=== PATIENT | male | born 1950 | race African-American/Black ===

== ENCOUNTER 2021-06-20 08:21 | Emergency (ER) | payer MEDICARE, MEDICAID ==
[~2021-06-20] VITALS: Ht 182.9 cm; Wt 89.0 kg
[2021-06-20 09:38] VITALS: BP 121/74
[2021-06-20] MEDS ORDERED: CEPH500T MT (09:42)
[2021-06-20] MEDS ORDERED: P50 MT (09:42)
[2021-06-20] MEDS ORDERED: CEPHALEXIN 250MG CAPSULE PO ONE (09:45)
[2021-06-20] MEDS ORDERED: PREDNISONE 20MG TABLET PO ONE (09:45)
== END 2021-06-20 10:10 | disposition home or self-care (01) ==
LOC: ER 08:37
DX: L25.9 Unspecified contact dermatitis, unspecified cause (principal); E11.9 Type 2 diabetes mellitus without complications; I10 Essential (primary) hypertension; Z98.890 Other specified postprocedural states
CPT/HCPCS: 99283; J7512

== ENCOUNTER 2025-06-21 11:41 | Inpatient (IN) | payer MEDICARE, MEDICAID ==
[~2025-06-21] VITALS: Ht 180.3 cm; Wt 83.1 kg
[2025-06-21 08:30] VITALS: BP 124/88; PULSE 98; RESP 18; TEMP 36; O2SAT 98
[~2025-06-21 11:41] MED LIST: AMLO5TAB88 PO; ASPI-1497 PO; CIPR-263 MT; DOCU-138 MT; FINA-37 MT; TAMS-54 MT
[2025-06-21 11:43] VITALS: O2SAT 97
[2025-06-21] MEDS: SODIUM CHLORIDE 0.9% (SEPSIS BOLUS) IV ONE (12:46)
[2025-06-21] MEDS: PIPERACILLIN/TAZO 3.375G/50ML 50 ML IV ONE (12:46)
[2025-06-21 13:02] LABS: HEMATOCRIT. 36.9 % (42.0-52.0); HEMOGLOBIN. 11.5 g/dL (14.0-18.0); MEAN PLATELET VOLUME 8.5 fl (7.4-10.4); PLATELET 372 x1000/uL (130-400); RED BLOOD CELL COUNT 4.33 mill/uL (4.7-6.1); RED CELL DISTRIBUTION WIDTH 16.2 % (11.6-14.6)
[2025-06-21 13:08] LABS: INR 1.2
[2025-06-21 13:14] LABS: UREA NITROGEN BLOOD 33 mg/dL (9-23)
[2025-06-21] MEDS: VANCOMYCIN 1G PREMIX 200 ML IV ONE (13:15)
[2025-06-21 13:16] LABS: ASPARTATE AMINOTRANSFERASE 21 IU/L (<34); BILIRUBIN DIRECT 0.2 mg/dL (<=3.0); BILIRUBIN TOTAL 0.4 mg/dL (0.1-1.0); PROTEIN TOTAL 7.7 g/dL (6.0-8.3)
[2025-06-21 13:23] LABS: CREATININE 1.5 mg/dL (0.6-1.3)
[2025-06-21 13:42] LABS: BAND% 1.0 % (1.0-6.0); EOSINOPHILS % MANUAL 1.0 % (0.0-5.0); LYMPHOCYTES % MANUAL 10.0 % (20.0-50.0); MONOCYTES % MANUAL 5.0 % (2.0-8.0); NEUTROPHILS % MANUAL 83.0 % (45.0-75.0)
[2025-06-21 13:43] LABS: PLATELET ESTIMATE NORMAL
[2025-06-21 15:33] LABS: CLARITY URINE TURBID (CLEAR); COLOR URINE ORANGE (YELLOW); GLUCOSE URINE NEGATIVE (NEGATIVE); KETONES URINE TRACE (NEGATIVE); LEUKOCYTE ESTERASE URINE 3+ (NEGATIVE); NITRITE URINE NEGATIVE (NEGATIVE); OCCULT BLOOD URINE 3+ (NEGATIVE); PH URINE 5.5 (4.5-8.0); PROTEIN URINE 3+ (NEGATIVE); SPECIFIC GRAVITY URINE 1.021 (1.005-1.030); UROBILINOGEN URINE 0.2 E.U./dL (0.2-1.0)
[2025-06-21 16:09] LABS: WBC URINE TNTC /hpf (0-2)
[2025-06-21 16:10] LABS: BACTERIA URINE 3+; SQUAMOUS EPITHELIAL CELL URINE 1+ /lpf (RARE/1+)
[2025-06-21 18:30] VITALS: BP 124/88; PULSE 98; RESP 18; TEMP 36; O2SAT 98
[2025-06-21] MEDS ORDERED: MV-M1TAB19 PO (19:15)
[2025-06-21] MEDS ORDERED: CHOL100046 PO (19:15)
[2025-06-21] MEDS ORDERED: METO25TA6 PO (19:15)
[2025-06-21] MEDS ORDERED: SPIR25TA6 PO (19:15)
[2025-06-21] MEDS ORDERED: MIRA50TA PO (19:15)
[2025-06-21] MEDS ORDERED: ATOR20TA65 PO (19:15)
[2025-06-21] MEDS ORDERED: SACU1TAB PO (19:15)
[2025-06-21 20:00] VITALS: BP 125/70; PULSE 75; RESP 18; TEMP 36.5; O2SAT 99
[2025-06-21] MEDS: PIPERACILLIN/TAZO 3.375G/50ML 50 ML IV SCH (22:38)
[2025-06-21] MEDS: SODIUM CHLORIDE 0.9% 1,000 ML IV SCH (22:38)
[2025-06-21] MEDS: VANCOMYCIN 750MG/150ML (BAXTER) IV SCH (23:45)
[2025-06-22] VITALS: BP 98/50; PULSE 68; RESP 17; TEMP 36.4; O2SAT 99
[2025-06-22 01:09] LABS: HEMATOCRIT. 34.3 % (42.0-52.0); HEMOGLOBIN. 10.5 g/dL (14.0-18.0); MEAN PLATELET VOLUME 8.6 fl (7.4-10.4); PLATELET 327 x1000/uL (130-400); RED BLOOD CELL COUNT 4.09 mill/uL (4.7-6.1); RED CELL DISTRIBUTION WIDTH 15.8 % (11.6-14.6)
[2025-06-22 01:35] LABS: LYMPHOCYTES % MANUAL 15.0 % (20.0-50.0); MONOCYTES % MANUAL 4.0 % (2.0-8.0); NEUTROPHILS % MANUAL 81.0 % (45.0-75.0); PLATELET ESTIMATE NORMAL
[2025-06-22 01:41] LABS: CREATININE 1.2 mg/dL (0.6-1.3)
[2025-06-22 01:42] LABS: UREA NITROGEN BLOOD 31 mg/dL (9-23)
[2025-06-22 01:43] LABS: ASPARTATE AMINOTRANSFERASE 16 IU/L (<34)
[2025-06-22 01:44] LABS: BILIRUBIN DIRECT 0.1 mg/dL (<=3.0); BILIRUBIN TOTAL 0.3 mg/dL (0.1-1.0); PROTEIN TOTAL 6.4 g/dL (6.0-8.3)
[2025-06-22 04:00] VITALS: BP 113/69; PULSE 93; RESP 18; TEMP 36.5; O2SAT 100
[2025-06-22 08:08] VITALS: BP 146/78; PULSE 98; RESP 20; TEMP 36.7; O2SAT 100
[2025-06-22 08:36] LABS: CREATININE 0.9 mg/dL (0.6-1.3); UREA NITROGEN BLOOD 23 mg/dL (9-23)
[2025-06-22 09:06] LABS: HEMATOCRIT. 36.1 % (42.0-52.0); HEMOGLOBIN. 11.1 g/dL (14.0-18.0); MEAN PLATELET VOLUME 8.9 fl (7.4-10.4); PLATELET 325 x1000/uL (130-400); RED BLOOD CELL COUNT 4.29 mill/uL (4.7-6.1); RED CELL DISTRIBUTION WIDTH 16.0 % (11.6-14.6)
[2025-06-22] MEDS ORDERED: NALOXONE HCL 0.4MG/ML VIAL IV PRN (10:00)
[2025-06-22] MEDS: HYDROCODONE/ACETAMINOPHEN 10/325MG TABLET PO PRN (10:08)
[2025-06-22 12:00] VITALS: BP 122/66; PULSE 87; RESP 20; TEMP 36.7; O2SAT 100
[2025-06-22] MEDS: VANCOMYCIN 750MG/150ML (BAXTER) IV SCH (12:32)
[2025-06-22] MEDS ORDERED: VANCOMYCIN 1.25GM/250ML IV SCH (14:00)
[2025-06-22 16:00] VITALS: BP 119/69; PULSE 95; RESP 18; TEMP 36.5; O2SAT 98
[2025-06-22 17:23] LABS: BAND% 1.0 % (1.0-6.0); EOSINOPHILS % MANUAL 3.0 % (0.0-5.0); LYMPHOCYTES % MANUAL 6.0 % (20.0-50.0); MONOCYTES % MANUAL 7.0 % (2.0-8.0); NEUTROPHILS % MANUAL 83.0 % (45.0-75.0); PLATELET ESTIMATE NORMAL
[2025-06-22] MEDS: METOPROLOL TARTRATE 25MG TABLET PO SCH (17:49)
[2025-06-22] MEDS: ASPIRIN 81MG EC TABLET PO SCH (17:49)
[2025-06-22] MEDS: FINASTERIDE 5MG TABLET PO SCH (17:50)
[2025-06-22] MEDS: TAMSULOSIN HCL 0.4MG SR CAPSULE PO SCH (17:50)
[2025-06-22] MEDS: AMLODIPINE 5MG TABLET PO SCH (17:50)
[2025-06-22 20:00] VITALS: BP 100/66; PULSE 72; RESP 18; TEMP 36.8; O2SAT 97
[2025-06-22] MEDS: ATORVASTATIN CALCIUM 20MG TABLET PO SCH (21:01)
[2025-06-23] VITALS (7 sets, daily range): BP systolic 102–150; BP diastolic 60–76; PULSE 76–100; RESP 18–20; TEMP 36.2–36.9; O2SAT 94–98
[2025-06-23] MEDS: ENOXAPARIN 40MG/0.4ML SYR SUBCUT SCH (08:29)
[2025-06-23 12:39] LABS: HEMATOCRIT. 35.9 % (42.0-52.0); HEMOGLOBIN. 11.4 g/dL (14.0-18.0); MEAN PLATELET VOLUME 8.9 fl (7.4-10.4); PLATELET 303 x1000/uL (130-400); RED BLOOD CELL COUNT 4.29 mill/uL (4.7-6.1); RED CELL DISTRIBUTION WIDTH 16.0 % (11.6-14.6)
[2025-06-23 12:52] LABS: CREATININE 0.9 mg/dL (0.6-1.3); UREA NITROGEN BLOOD 12 mg/dL (9-23)
[2025-06-23 17:54] LABS: EOSINOPHILS % MANUAL 3.0 % (0.0-5.0); LYMPHOCYTES % MANUAL 11.0 % (20.0-50.0); MONOCYTES % MANUAL 7.0 % (2.0-8.0); NEUTROPHILS % MANUAL 79.0 % (45.0-75.0); PLATELET ESTIMATE NORMAL
[2025-06-24] VITALS: BP 149/80; PULSE 88; RESP 20; TEMP 36.8; O2SAT 97
[2025-06-24 04:00] VITALS: BP 147/68; PULSE 97; RESP 20; TEMP 36.8; O2SAT 98
[2025-06-24 08:00] VITALS: BP 178/84; PULSE 82; RESP 18; TEMP 36.4; O2SAT 95
[2025-06-24 09:01] LABS: CREATININE 0.9 mg/dL (0.6-1.3)
[2025-06-24 09:02] LABS: UREA NITROGEN BLOOD 11 mg/dL (9-23)
[2025-06-24 09:04] LABS: HEMATOCRIT. 35.1 % (42.0-52.0); HEMOGLOBIN. 10.8 g/dL (14.0-18.0); MEAN PLATELET VOLUME 8.9 fl (7.4-10.4); PLATELET 297 x1000/uL (130-400); RED BLOOD CELL COUNT 4.14 mill/uL (4.7-6.1); RED CELL DISTRIBUTION WIDTH 16.1 % (11.6-14.6)
[2025-06-24 12:45] VITALS: BP 135/70; PULSE 96; RESP 18; TEMP 37.2; O2SAT 95
[2025-06-24 16:00] VITALS: BP 105/51; PULSE 87; RESP 17; TEMP 36.7; O2SAT 95
[2025-06-24] MEDS: VANCOMYCIN 1.25GM/250ML 250 ML IV SCH (16:21)
[2025-06-24 20:00] VITALS: BP 126/56; PULSE 95; RESP 20; TEMP 36.8; O2SAT 97
[2025-06-25] VITALS: PULSE 80; RESP 20; TEMP 37; O2SAT 98
[2025-06-25 04:00] VITALS: BP 140/80; PULSE 90; RESP 18; TEMP 36.8; O2SAT 97
[2025-06-25 05:40] LABS: EOSINOPHILS % MANUAL 3.0 % (0.0-5.0); LYMPHOCYTES % MANUAL 13.0 % (20.0-50.0); MONOCYTES % MANUAL 12.0 % (2.0-8.0); NEUTROPHILS % MANUAL 72.0 % (45.0-75.0); PLATELET ESTIMATE NORMAL
[2025-06-25 08:00] VITALS: BP 144/69; PULSE 95; RESP 18; TEMP 36.6; O2SAT 96
[2025-06-25 12:00] VITALS: BP 154/76; PULSE 86; RESP 18; TEMP 36.6; O2SAT 99
[2025-06-25 16:00] VITALS: BP 134/66; PULSE 94; RESP 17; TEMP 36.6; O2SAT 97
[2025-06-25 20:00] VITALS: BP 179/93; PULSE 109; RESP 20; TEMP 36.7; O2SAT 93
[2025-06-26] VITALS: BP 127/82; PULSE 75; RESP 20; TEMP 36.8; O2SAT 92
[2025-06-26 04:00] VITALS: BP 146/92; PULSE 108; RESP 20; TEMP 36.6; O2SAT 95
[2025-06-26 06:53] LABS: CREATININE 0.8 mg/dL (0.6-1.3); UREA NITROGEN BLOOD 8 mg/dL (9-23)
[2025-06-26 06:54] LABS: HEMATOCRIT. 31.4 % (42.0-52.0); HEMOGLOBIN. 9.9 g/dL (14.0-18.0); MEAN PLATELET VOLUME 8.6 fl (7.4-10.4); PLATELET 316 x1000/uL (130-400); RED BLOOD CELL COUNT 3.80 mill/uL (4.7-6.1); RED CELL DISTRIBUTION WIDTH 15.7 % (11.6-14.6)
[2025-06-26 06:55] LABS: VITAMIN B12 SERUM 641 pg/mL (211-911)
[2025-06-26 08:30] VITALS: BP 144/71; PULSE 100; RESP 18; TEMP 36.6; O2SAT 97
[2025-06-26 10:30] LABS: BAND% 1.0 % (1.0-6.0); LYMPHOCYTES % MANUAL 4.0 % (20.0-50.0); MONOCYTES % MANUAL 10.0 % (2.0-8.0); NEUTROPHILS % MANUAL 85.0 % (45.0-75.0); PLATELET ESTIMATE NORMAL
[2025-06-26 12:25] VITALS: BP 117/63; PULSE 79; RESP 18; TEMP 36.3; O2SAT 98
[2025-06-26 16:30] VITALS: BP 151/68; PULSE 102; RESP 18; TEMP 37.1; O2SAT 93
[2025-06-26 20:00] VITALS: BP 126/85; PULSE 108; RESP 20; TEMP 36.9; O2SAT 95
[2025-06-27] VITALS: BP 157/80; PULSE 100; RESP 20; TEMP 36.8; O2SAT 93
[2025-06-27 04:00] VITALS: BP 141/77; PULSE 100; RESP 18; TEMP 36.7; O2SAT 96
[2025-06-27 08:00] VITALS: BP 163/83; PULSE 91; RESP 17; TEMP 36.8; O2SAT 97
[2025-06-27] MEDS ORDERED: LIDOCAINE HCL 1% 10 MG/ML 10ML VIAL ONE (08:07)
[2025-06-27 12:00] VITALS: BP 128/76; PULSE 96; RESP 19; TEMP 37; O2SAT 96
[2025-06-27 13:24] VITALS: BP 128/78; PULSE 96; RESP 16; TEMP 98.3
== END 2025-06-27 15:50 | DRG 872 ==
LOC: ER 13:50 → EDBEDREQ 14:14 → EDBEDREQTM 14:14 → 8WST 18:21 → 8EST 06-27 00:25
PROVIDERS: ADMIT Internal Medicine; ATTEND Internal Medicine
PROC: 4A00X4Z Measurement of Central Nervous Electrical Activity, External Approach (ICD-10-PCS; 2025-06-26)
PROC: 02HV33Z Insertion of Infusion Device into Superior Vena Cava, Percutaneous Approach (ICD-10-PCS; principal; 2025-06-27)
PROC: B548ZZA Ultrasonography of Superior Vena Cava, Guidance (ICD-10-PCS; 2025-06-27)
DX: A41.9 Sepsis, unspecified organism (principal); I50.9 Heart failure, unspecified; I11.0 Hypertensive heart disease with heart failure; E87.1 Hypo-osmolality and hyponatremia; N17.9 Acute kidney failure, unspecified; N39.0 Urinary tract infection, site not specified; R65.20 Severe sepsis without septic shock; D50.9 Iron deficiency anemia, unspecified; N32.89 Other specified disorders of bladder; D50.8 Other iron deficiency anemias; Z79.899 Other long term (current) drug therapy; Z90.81 Acquired absence of spleen; Z85.07 Personal history of malignant neoplasm of pancreas
CPT/HCPCS: 36415; 36573; 70551; 71045; 74176; 80048; 80053; 80076; 80202; 81003; 82607; 83605; 84145; 84443; 85025; 93005; 95816; 97162; 99291; A4606; C1725; C1769; J1650; J2003; J2543; J3373; J7030